=== PATIENT | male | born 1990 | race African-American/Black ===

== ENCOUNTER 2017-10-14 18:52 | Emergency (ER) | payer SELFPAY ==
[~2017-10-14] VITALS: Ht 172.7 cm; Wt 59.0 kg
--- NOTE | 2017-10-14 19:34 | ED Abdominal Pain ---
General Chief Complaint: Abdominal/GI Problems Stated Complaint: ABD PAIN Nursing Triage Note: states for three days right sided abdominal pain. pt verbalized n/v/d Sepsis Screen: No Definite Risk Source of Information: Patient Exam Limitations: No Limitations History of Present Illness Date Seen by Provider: Oct 14, 2017 Time Seen by Provider: 19:33 Initial Comments To ER with 3 day history of right-sided abdominal pain. The pain has been most intense today. He also has nausea vomiting diarrhea and chills. 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 Timing/Duration: 2-3 Days Severity/Quality: Moderate Location: RUQ, RLQ Radiation: No Radiation Activities at Onset: None Allergies and Home Medications Allergies Coded Allergies: No Known Drug Allergies (Unverified , 10/14/17) Home Medications Sulfamethoxazole/Trimethoprim 1 Each Tablet, 1 EACH PO BID, #20 Prescribed by: FRANCISCO MCINTYRE on 10/14/172034 Review of Systems Constitutional: see HPI, chills EENTM: No Symptoms Reported Respiratory: No Symptoms Reported Cardiovascular: No Symptoms Reported Gastrointestinal: See HPI, Abdominal Pain, Diarrhea, Nausea Genitourinary: No Symptoms Reported Musculoskeletal: no symptoms reported Skin: no symptoms reported Psychiatric/Neurological: No Symptoms Reported Endocrine: No Symptoms Reported Past Ddasqei-Fyhkaj-Mbwwco Hx Patient Social History Recent Foreign Travel: No Contact w/Someone Who Travel: No Recent Infectious Disease Expo: No Physical Exam Vital Signs VS - Last 72 Hours, by Label 10/14/17 19:20 Temp 98.9 Pulse 112 Resp 18 B/P (MAP) 118/91 (100) Pulse Ox 98 O2 Delivery Room Air Capillary Refill : Less Than 3 Seconds General Appearance: WD/WN, no apparent distress HEENT: PERRL/EOMI, normal ENT inspection Respiratory: normal breath sounds, no respiratory distress Cardiovascular: regular rate, rhythm, no murmur Gastrointestinal: normal bowel sounds, soft, tenderness Extremities: normal range of motion, non-tender Neurologic/Psychiatric: alert, normal mood/affect, oriented x 3 Skin: normal color, warm/dry Progress/Results/Core Measures Results/Orders Lab Results Laboratory Tests Test 10/14/17 19:28 10/14/17 19:45 Range/Units Urine Color YELLOW Urine Clarity CLEAR Urine pH 6 5-9 Urine Specific [place] 1.025 H 1.016-1.022 Urine Protein 1+ H NEGATIVE Urine Glucose (UA) NEGATIVE NEGATIVE Urine Ketones NEGATIVE NEGATIVE Urine Nitrite NEGATIVE NEGATIVE Urine Bilirubin NEGATIVE NEGATIVE Urine Urobilinogen 1 NORMAL MG/DL Urine Leukocyte Esterase NEGATIVE NEGATIVE Urine RBC (Auto) 1+ H NEGATIVE Urine RBC RARE /HPF Urine WBC 10-25 H /HPF Urine Squamous Epithelial Cells RARE /HPF Urine Renal Epithelial Cells NONE /HPF Urine Crystals NONE /LPF Urine Bacteria TRACE /HPF Urine Casts NONE /LPF Urine Mucus LARGE H /LPF Urine Culture Indicated YES White Blood Count 12.2 H 4.3-11.0 10^3/uL Red Blood Count 6.20 H 4.35-5.85 10^6/uL Hemoglobin 15.0 13.3-17.7 G/DL Hematocrit 44 40-54 % Mean Corpuscular Volume 72 L 80-99 FL Mean Corpuscular Hemoglobin 24 L 25-34 PG Mean Corpuscular Hemoglobin Concent 34 32-36 G/DL Red Cell Distribution Width 15.7 H 10.0-14.5 % Platelet Count 164 130-400 10^3/uL Mean Platelet Volume 11.9 H 7.4-10.4 FL Neutrophils (%) (Auto) 88 H 42-75 % Lymphocytes (%) (Auto) 6 L 12-44 % Monocytes (%) (Auto) 6 0-12 % Eosinophils (%) (Auto) 0 0-10 % Basophils (%) (Auto) 0 0-10 % Neutrophils # (Auto) 10.6 H 1.8-7.8 X 10^3 Lymphocytes # (Auto) 0.7 L 1.0-4.0 X 10^3 Monocytes # (Auto) 0.8 0.0-1.0 X 10^3 Eosinophils # (Auto) 0.0 0.0-0.3 10^3/uL Basophils # (Auto) 0.0 0.0-0.1 10^3/uL Neutrophils % (Manual) 80 % Lymphocytes % (Manual) 8 % Monocytes % (Manual) 7 % Eosinophils % (Manual) 0 % Basophils % (Manual) 0 % Band Neutrophils 1 % Reactive Lymphocytes 4 % Toxic Granulation 1+ Poikilocytosis MODERATE Anisocytosis SLIGHT Microcytosis MODERATE Stomatocytes MODERATE Elliptocytes SLIGHT Sodium Level 141 135-145 MMOL/L Potassium Level 3.6-5.0 MMOL/L Chloride Level 105 98-107 MMOL/L Carbon Dioxide Level 24 21-32 MMOL/L Anion Gap 12 5-14 MMOL/L Blood Urea Nitrogen 11 7-18 MG/DL Creatinine 1.06 0.60-1.30 MG/DL Estimat Glomerular Filtration Rate > 60 BUN/Creatinine Ratio 10 Glucose Level 96 70-105 MG/DL Calcium Level 9.4 8.5-10.1 MG/DL Total Bilirubin 1.8 H 0.1-1.0 MG/DL Aspartate Amino Transf (AST/SGOT) 43 H 5-34 U/L Alanine Aminotransferase (ALT/SGPT) 29 0-55 U/L Alkaline Phosphatase 67 40-136 U/L Total Protein 8.6 H 6.4-8.2 GM/DL Albumin 4.6 H 3.2-4.5 GM/DL My Orders Orders - FRANCISCO MCINTYRE VISE HAND Cbc With Automated Diff (10/14/17 19:32) Comprehensive Metabolic Panel (10/14/17 19:32) Ua Culture If Indicated (10/14/17 19:32) Saline Lock/Iv-Start (10/14/17 19:32) Ct Abd/Pelv W (Appendicitis) (10/14/17 19:32) Acetaminophen Tablet (Tylenol Tablet) (10/14/17 19:45) Fentanyl Injection (Sublimaze Injection (10/14/17 19:45) Ns Iv 1000 Ml (Sodium Chloride 0.9%) (10/14/17 19:45) Iohexol Injection (Omnipaque 350 Mg/Ml 1 (10/14/17 19:45) Ns (Ivpb) (Sodium Chloride 0.9% Ivpb Bag (10/14/17 19:45) Urine Culture (10/14/17 19:28) Ceftriaxone Injection (Rocephin Injectio (10/14/17 20:15) Ceftriaxone Injection (Rocephin Injectio (10/14/17 20:15) Manual Differential (10/14/17 19:45) Chlamydia Dna (10/14/17 20:23) Neis Evans Dna Urine Test (10/14/17 20:23) Medications Given in ED Current Medications Medications Dose Ordered Sig/Lauren Route Start Time Stop Time Status Last Admin Dose Admin Acetaminophen 1,000 mg ONCE ONCE PO 10/14/17 19:45 10/14/17 19:46 DC 10/14/17 19:43 1,000 MG Fentanyl Citrate 50 mcg ONCE ONCE IVP 10/14/17 19:45 10/14/17 19:46 DC 10/14/17 19:43 50 MCG Iohexol 100 ml ONCE ONCE IV 10/14/17 19:45 10/14/17 20:19 DC 10/14/17 20:06 100 ML Sodium Chloride 100 ml ONCE ONCE IV 10/14/17 19:45 10/14/17 20:19 DC 10/14/17 20:06 100 ML Vital Signs/I&O Vital Sign - Last 12Hours 10/14/17 19:20 Temp 98.9 Pulse 112 Resp 18 B/P (MAP) 118/91 (100) Pulse Ox 98 O2 Delivery Room Air Blood Pressure Mean: 100 Diagnostic Imaging Diagonstic Imaging: CT Comments NAME: RADHA HEMPHILL [facility] REC#: [id number] PT STATUS: REG ER : 1990 PHYSICIAN: FRANCISCO MCINTYRE VISE HAND ADMIT DATE: 10/14/17/ER Signed Date of Exam:10/14/17 CT ABD/PELV W (APPENDICITIS) PROCEDURE: CT abdomen and pelvis with contrast, rule out appendicitis. TECHNIQUE: Multiple contiguous axial images were obtained through the abdomen and pelvis after the administration of intravenous contrast. INDICATION: Nausea, emesis and abdominal pain. FINDINGS: There is extensive centrilobular emphysema noted within the visualized lung bases. No focal hepatic or splenic abnormality is identified. Gallbladder, pancreas and adrenal glands are unremarkable. Kidneys have a normal appearance. There is no evidence of free fluid in the abdomen or pelvis. No pathologic adenopathy is identified. The partially opacified urinary bladder is unremarkable. The appendix is unremarkable. There are occasional prominent inguinal lymph nodes, bilaterally. IMPRESSION: No acute abnormality is identified. Centrilobular emphysema in the lung bases could be related to underlying cystic fibrosis or possible Alpha-1 antitrypsin deficiency. Clinical correlation would be useful. Dictated by: Dictated on workstation # [id number] Dict: 10/14/172021 Trans: 10/14/172028 [facility] [id number] Interpreted by: GROVER SORIANO MD Electronically signed by: GROVER SORIANO MD 10/14/172028 Departure Impression Impression: Primary Impression: Urinary tract infection Additional Impression: Emphysema of lung Disposition: HOME, SELF-CARE Condition: Improved Departure-Patient Inst. Decision time for Depature: 20:33 Referrals: NO,LOCAL PHYSICIAN (PCP) Primary Care Physician Patient Instructions: COPD Including Emphysema (DC), Urinary Tract Infection, Adult (DC) Add. Discharge Instructions: 1. Antibiotic as directed for your bladder infection 2. Return to ER for any vomiting that prevents you from taking antibiotics, worsening pain or other concerns. Please follow-up with [employer] on Monday for recheck and further evaluation of the unusual appearance of your lungs. Your lungs look like the lungs of a typically much older patient. This could be because you're lacking a certain protein called Alpha-1 antitrypsin. Please follow up with [employer] on monday. All discharge instructions reviewed with patient and/or family. Voiced understanding. Scripts Sulfamethoxazole/Trimethoprim (Bactrim Ds Tablet) 1 Each Tablet 1 EACH PO BID, #20 TAB Prov: FRANCISCO MCINTYRE APRN 10/14/17 Copy Copies To 1: NGOC HOLT MD, PETER J APRN Oct 14, 2017 19:34
[2017-10-14 19:37] LABS: BILIRUBIN,URINE NEGATIVE (NEGATIVE); CLARITY,URINE CLEAR; COLOR,URINE YELLOW; GLUCOSE, URINE (UA) NEGATIVE (NEGATIVE); KETONES,URINE NEGATIVE (NEGATIVE); LEUKOCYTE ESTERASE ,URINE NEGATIVE (NEGATIVE); NITRITE,URINE NEGATIVE (NEGATIVE); PH,URINE 6 (5-9); PROTEIN,URINE 1+ (NEGATIVE); UROBILINOGEN,URINE 1 MG/DL (NORMAL)
[2017-10-14] MEDS ORDERED: IOHEXOL 350 MG/ML 100 ML (OMNIPAQUE 350) VIAL IV ONE (19:45)
[2017-10-14] MEDS ORDERED: NS 100 ML (IVPB) BAG IV ONE (19:45)
[2017-10-14] MEDS ORDERED: fentaNYL INJECTION 100 MCG/2 ML AMP IVP ONE (19:45)
[2017-10-14] MEDS ORDERED: NS IV 1000 ML 1,000 ML IV SCH (19:45)
[2017-10-14] MEDS ORDERED: ACETAMINOPHEN 500 MG TAB (TYLENOL) PO ONE (19:45)
[2017-10-14 20:05] LABS: BACTERIA,URINE TRACE /HPF; RBC,URINE RARE /HPF; SQUAMOUS EPITHELIAL CELL,UR RARE /HPF
[2017-10-14 20:06] LABS: BASOPHILS % (AUTO) 0 % (0-10); EOSINOPHILS % (AUTO) 0 % (0-10); HEMATOCRIT 44 % (40-54); LYMPHOCYTES # (AUTO) 0.7 X 10^3 (1.0-4.0); LYMPHOCYTES % (AUTO) 6 % (12-44); MEAN CORPUSCULAR HEMOGLOBIN 24 PG (25-34); MEAN CORPUSCULAR HGB CONC 34 G/DL (32-36); MEAN CORPUSCULAR VOLUME 72 FL (80-99); MEAN PLATELET VOLUME 11.9 FL (7.4-10.4); MONOCYTES # (AUTO) 0.8 X 10^3 (0.0-1.0); MONOCYTES % (AUTO) 6 % (0-12); NEUTROPHILS # (AUTO) 10.6 X 10^3 (1.8-7.8); NEUTROPHILS % (AUTO) 88 % (42-75); PLATELET COUNT 164 10^3/uL (130-400); RED CELL DISTRIBUTION WIDTH 15.7 % (10.0-14.5); WHITE BLOOD COUNT 12.2 10^3/uL (4.3-11.0)
[2017-10-14] MEDS ORDERED: cefTRIAXone INJECTION 1,000 MG in NS (IVPB) 50 ML IV ONE ×4 (20:15)
[2017-10-14 20:25] LABS: ALANINE AMINOTRANSFERASE 29 U/L (0-55); ALBUMIN 4.6 GM/DL (3.2-4.5); ALKALINE PHOSPHATASE 67 U/L (40-136); BILIRUBIN,TOTAL 1.8 MG/DL (0.1-1.0); BUN/CREATININE RATIO 10; CALCIUM 9.4 MG/DL (8.5-10.1); CARBON DIOXIDE 24 MMOL/L (21-32); CHLORIDE 105 MMOL/L (98-107); CREATININE SERUM 1.06 MG/DL (0.60-1.30); GFR ESTIMATED > 60; GLUCOSE 96 MG/DL (70-105); SODIUM 141 MMOL/L (135-145); TOTAL PROTEIN 8.6 GM/DL (6.4-8.2)
--- NOTE | 2017-10-14 20:28 | Diagnostic Imaging Report ---
PROCEDURE: CT abdomen and pelvis with contrast, rule out appendicitis. TECHNIQUE: Multiple contiguous axial images were obtained through the abdomen and pelvis after the administration of intravenous contrast. INDICATION: Nausea, emesis and abdominal pain. FINDINGS: There is extensive centrilobular emphysema noted within the visualized lung bases. No focal hepatic or splenic abnormality is identified. Gallbladder, pancreas and adrenal glands are unremarkable. Kidneys have a normal appearance. There is no evidence of free fluid in the abdomen or pelvis. No pathologic adenopathy is identified. The partially opacified urinary bladder is unremarkable. The appendix is unremarkable. There are occasional prominent inguinal lymph nodes, bilaterally. IMPRESSION: No acute abnormality is identified. Centrilobular emphysema in the lung bases could be related to underlying cystic fibrosis or possible Alpha-1 antitrypsin deficiency. Clinical correlation would be useful. Dictated by: Dictated on workstation # [id number]
[2017-10-14] MEDS ORDERED: SULF1TAB35 PO (20:35)
[2017-10-14 20:45] LABS: ANISOCYTOSIS SLIGHT; BAND NEUTROPHILS 1 %; BASOPHILS % (MANUAL) 0 %; ELLIPT/OVALOCYTES SLIGHT; EOSINOPHILS % (MANUAL) 0 %; LYMPHOCYTES % (MANUAL) 8 %; MICROCYTOSIS MODERATE; MONOCYTES % (MANUAL) 7 %; POIKILOCYTOSIS MODERATE; REACTIVE LYMPHOCYTES 4 %; STOMATOCYTES MODERATE
[2017-10-14 20:46] LABS: TOXIC GRANULATION/VACUOLAZATIO 1+
[2017-10-14 20:47] LABS: NEUTROPHILS % (MANUAL) 80 %
[2017-10-14] MEDS ORDERED: RX-HYDROCODONE/APAP 5/325 MG #4 TAB PK PO PRN (21:00)
[2017-10-14 21:07] VITALS: BP 114/74
== END 2017-10-14 21:07 | disposition home or self-care (01) ==
LOC: ER 18:56
DX: N39.0 Urinary tract infection, site not specified (principal); J43.9 Emphysema, unspecified
CPT/HCPCS: 36415; 74177; 80053; 81000; 85007; 85027; 87088; 96361; 96374; 96375